=== PATIENT | male | born 1990 | race African-American/Black ===

== ENCOUNTER 2019-04-20 19:45 | Emergency (ER) | payer SELFPAY ==
[~2019-04-20] VITALS: Ht 190.5 cm; Wt 72.7 kg
[2019-04-20 19:54] VITALS: BP 119/81
[2019-04-20] MEDS ORDERED: KETOROLAC TROMETHAMINE 10 MG TABLET PO STA (20:14)
--- NOTE | 2019-04-20 20:18 | PHYS DOC ---
Past Medical History Past Medical History: No Pertinent History Past Surgical History: No Surgical History Smoking Status: Never Smoker Alcohol Use: None Adult General Chief Complaint Chief Complaint: HAND PROBLEM HPI HPI Patient is a 28 year old male who presents with a fall that occurred while rollerskating. The patient states he caught himself with his right hand outstretched and is been having right fourth digit pain since the time of the fall. The fall was around 7:30 this evening. Denies any other symptoms. Reports his pain as 7 out of 10 in severity. Complete ROS were reviewed and found to be within normal limits, except as documented in the HPI Current Medications Current Medications Current Medications Medications (Trade) Dose Ordered Sig/Felisha Start Time Stop Time Status Last Admin Dose Admin Ketorolac Tromethamine (Toradol) 10 mg 1X STAT 04/20/19 20:14 04/20/19 20:18 DC 04/20/19 20:23 10 MG Allergies Allergies Allergies Coded Allergies Type Severity Reaction Last Updated Verified No Known Drug Allergies 04/20/19 No Physical Exam Physical Exam Constitutional: Well developed, well nourished, no acute distress, non-toxic appearance. [] HENT: Normocephalic, atraumatic, bilateral external ears normal, oropharynx moist, no oral exudates, nose normal. [] Eyes: PERRLA, EOMI, conjunctiva normal, no discharge. [] Skin: Warm, dry, no erythema, no rash. [] Back: No tenderness, no CVA tenderness. [] Extremities: Tenderness to distal joint of 4th digit on R hand. Neurovascular status intact, mild edema. Neurologic: Alert and oriented X 3, normal motor function, normal sensory function, no focal deficits noted. [] Psychologic: Affect normal, judgement normal, mood normal. [] Current Patient Data Vital Signs Vital Signs Date Time Temp Pulse Resp B/P (MAP) Pulse Ox O2 Delivery O2 Flow Rate FiO2 04/20/19 19:54 98.3 63 16 119/81 (94) 99 Room Air 98.3 EKG EKG [] Radiology/Procedures Radiology/Procedures [][facility] [address] [place] [address] IMAGING REPORT Signed PATIENT: BILLIE WELSH ACCOUNT: [id number] : 1990 LOCATION: ER AGE: 28 SEX: M EXAM STATUS: REG ER ORD. PHYSICIAN: TATYANA LOVE APRN REASON: fall while skating, 4th digit pain PROCEDURE: HAND RIGHT 3V PROCEDURE: HAND RIGHT 3V STUDY DATE: 04/20/2019 CLINICAL INDICATION / HISTORY: Fourth digit pain after fall while skating.. TECHNIQUE: PA, lateral and oblique views of the right hand. COMPARISON: None FINDINGS: Acute comminuted fracture of the proximal phalanx right fourth digit is present with no significant displacement. Fracture does not appear to involve the articular surfaces. No other fracture or dislocation is identified. The bone density is normal. The joint spaces are maintained, and there are no erosions to suggest an inflammatory arthropathy. The soft tissues are unremarkable. IMPRESSION: Acute comminuted fracture of the right fourth proximal phalanx without significant displacement or intra-articular involvement. Otherwise negative right hand. Electronically signed by: Villa Pederson MD (04/20/2019 8:42 PM) [facility] DICTATED and SIGNED BY: VILLA PEDERSON MD DATE: 04/20/192041 Course & Med Decision Making Course & Med Decision Making Pertinent Labs and Imaging studies reviewed. (See chart for details) Will get X-ray and give Toradol. IMPRESSION: Acute comminuted fracture of the right fourth proximal phalanx without significant displacement or intra-articular involvement. Otherwise negative right hand. Electronically signed by: Villa Pederson MD (04/20/2019 8:42 PM) [facility] Discussed with Dr. Mosqueda who recommends follow up with hand surgeon. Will refer to Dr. Tran. Had patient placed in Ulnar gutter splint. Dragon Disclaimer Dragon Disclaimer This electronic medical record was generated, in whole or in part, using a voice recognition dictation system. Departure Departure Impression: Primary Impression: Proximal phalanx fracture of finger Disposition: 01 HOME, SELF-CARE Condition: STABLE Referrals: NO PCP (PCP) Patient Instructions: Finger Fracture Additional Instructions: Thank you for visiting [facility]. We appreciate you trusting us with your care. If any additional problems come up don't hesitate to return to visit us. Please follow up with your primary care provider so they can plan additional care if needed and know about the problem that you had. If symptoms worsen come back to the Emergency Department. Any concerning symptoms that start such as chest pain, shortness of air, weakness or numbness on one side of the body, running high fevers or any other concerning symptoms return to the ER. Please fill your medications at any pharmacy and follow the prescription instructions. Please call and make an appointment with hand surgery. Dr. Abhishek Tran [phone] Scripts Ondansetron (ONDANSETRON ODT) 4 Mg Tab.rapdis 1 TAB PO PRN Q6-8HRS PRN for NAUSEA, #20 TAB Prov: TATYANA LOVE APRN 04/20/19 Hydrocodone/Apap 5-325 (NORCO 5-325 TABLET) 1 Each Tablet 1 TAB PO PRN Q6HRS PRN for PAIN for 3 Days, #10 TAB 0 Refills Prov: TATYANA LOVE APRN 04/20/19 Problem Qualifiers Primary Impression: Proximal phalanx fracture of finger Encounter type: initial encounter Finger: ring finger Fracture type: closed Fracture alignment: nondisplaced Laterality: right Qualified Codes: S62.644A - Nondisplaced fracture of proximal phalanx of right ring finger, initial encounter for closed fracture TATYANA LOVE APRN Apr 20, 2019 20:17
--- NOTE | 2019-04-20 20:45 | RAD ---
PROCEDURE: HAND RIGHT 3V STUDY DATE: 04/20/2019 CLINICAL INDICATION / HISTORY: Fourth digit pain after fall while skating.. TECHNIQUE: PA, lateral and oblique views of the right hand. COMPARISON: None FINDINGS: Acute comminuted fracture of the proximal phalanx right fourth digit is present with no significant displacement. Fracture does not appear to involve the articular surfaces. No other fracture or dislocation is identified. The bone density is normal. The joint spaces are maintained, and there are no erosions to suggest an inflammatory arthropathy. The soft tissues are unremarkable. IMPRESSION: Acute comminuted fracture of the right fourth proximal phalanx without significant displacement or intra-articular involvement. Otherwise negative right hand. Electronically signed by: Kylie Pederson MD (04/20/2019 8:42 PM) [facility]
[2019-04-20] MEDS ORDERED: HYDR-3164 PO (21:09)
[2019-04-20] MEDS ORDERED: ONDA4TAB12 PO (21:09)
== END 2019-04-20 21:29 | disposition home or self-care (01) ==
LOC: ER 19:45
DX: S62.644A Nondisplaced fracture of proximal phalanx of right ring finger, initial encounter for closed fracture (principal); V00.128A Other non-in-line roller-skating accident, initial encounter; Y93.51 Activity, roller skating (inline) and skateboarding; Y92.89 Other specified places as the place of occurrence of the external cause; Y99.8 Other external cause status
CPT/HCPCS: 29125; 29130; 73130; 99283